=== PATIENT | female | born 1955 | race Caucasian/White ===

== ENCOUNTER 2023-01-23 09:12 | Day surgery (SDC) | payer MEDICARE, BC ==
[2023-01-16 16:26] LABS: BASOPHILS % (AUTO) 0.7 % (0-1); EOSINOPHILS # (AUTO) 0.2 X10'3 (0-0.9); LYMPHOCYTES # (AUTO) 1.8 X10'3 (1.1-4.8); LYMPHOCYTES % (AUTO) 32.6 % (21-51); MEAN CORPUSCULAR HEMOGLOBIN 30.3 PG (27.0-31.0); MEAN CORPUSCULAR HGB CONC 33.3 g/dL (33.0-36.5); MEAN CORPUSCULAR VOLUME 91.1 FL (78-98); MEAN PLATELET VOLUME 8.4 FL (7.4-10.4); MONOCYTES # (AUTO) 0.4 X10'3 (0-0.9); MONOCYTES % (AUTO) 7.4 % (2-12); NEUTROPHILS # (AUTO) 3.1 X10'3 (1.8-7.7); NEUTROPHILS % (AUTO) 56.3 % (42-75); PRE OP HEMATOCRIT 39.1 % (35.0-45.0); PRE OP PLATELET COUNT 248 X10'3 (140-440); RED BLOOD COUNT 4.29 X10'6 (4.20-5.60); RED CELL DISTRIBUTION WIDTH 13.1 % (11.5-14.5)
[2023-01-16 16:39] LABS: ALBUMIN 4.1 G/DL (3.4-5.0); ALBUMIN/GLOBULIN RATIO 1.2 (1.1-1.5); ALKALINE PHOSPHATASE 97 IU/L (46-116); BLOOD UREA NITROGEN 12 MG/DL (7-18); BUN/CREATININE RATIO 17.1 (6.6-38.0); CALCIUM 9.9 MG/DL (8.5-10.1); CHLORIDE 105 MMOL/L (99-107); PRE OP ALT 21 U/L (30-65); PRE OP ANION GAP 4 (8-16); PRE OP AST 18 U/L (10-37); PRE OP BILIRUB, TOTAL 0.4 MG/DL (0.0-1.0); PRE OP GLUCOSE 94 MG/DL (70-104); PRE OP SODIUM 143 MMOL/L (135-145); TOTAL CARBON DIOXIDE 34.2 MMOL/L (24-32); TOTAL PROTEIN 7.6 G/DL (6.4-8.2); eGFR 83 ML/MIN
[2023-01-16 16:40] LABS: PRE OP POTASSIUM 3.2 MMOL/L (3.4-5.1)
[2023-01-23] VITALS (7 sets, daily range): BP systolic 116–154; BP diastolic 61–77
[~2023-01-23] VITALS: Ht 157.5 cm; Wt 61.8 kg
[~2023-01-23 09:12] MED LIST: BUPIVAcaine/PF 2.5 mg/ml (0.25%) 30ml vial ONE; CHLO25TA10 PO; CYAN25003 SL; DOXYLAMINE PO; LIDOcaine 0.5% (5mg/ml) 50ml vial ONE; MELA5TAB12 PO; POTA-207 PO; ROSU10TA28 PO; VITAMIN D 2000 UNIT PO; cefazolin 2gm/D5W 100mL 100 ML IV ONE; famotidine 20mg tablet PO ONE; ringers solution, lacted 1,000 ML IV SCH
[2023-01-23] MEDS ORDERED: acetaminophen 1,000mg/100ml IV 100 ML IV PRN (11:15)
[2023-01-23] MEDS ORDERED: meperidine/PF 25mg/ml syringe IV PRN ×3 (11:15)
[2023-01-23] MEDS ORDERED: ondansetron/PF 4mg/2ml inj IV PRN (11:15)
[2023-01-23] MEDS ORDERED: morphine 2 MG/ML inj. syringe IV PRN (11:15)
[2023-01-23] MEDS ORDERED: hydrALAZINE 20mg/ml inj. IV PRN (11:15)
[2023-01-23] MEDS ORDERED: ringers solution, lacted 1,000 ML IV SCH (11:15)
[2023-01-23] MEDS ORDERED: morphine 4 MG/ML inj SYRINge IV PRN (11:15)
[2023-01-23] MEDS ORDERED: proCHLORperazine 10 MG/2 ml inj IV PRN (11:15)
[2023-01-23] MEDS ORDERED: labetalol 20mg/4ml (5mg/ml) syringe IV PRN (11:15)
[2023-01-23] MEDS ORDERED: midazolam 1 mg/ML 2ml injection ONE (12:24)
[2023-01-23] MEDS ORDERED: fentaNYL/PF 50MCG/1 ML 2ML syringe ONE (12:25)
[2023-01-23] MEDS ORDERED: BUPIVAcaine/PF 5 mg/ml 10ml IJ ONE (12:48)
--- NOTE | 2023-01-23 12:51 | NUR ---
Received from OR via , accompanied by Anesthesiologist TEA AND OR NURSE and report given by Anesthesiolgist. PT IS AWAKE AND ALERT; C/O NAUSEA. DENIES PAIN OR DISCOMFORT. RT WRIST DRESSING; CDI. VSS Addendum: 01/23/23 at 1311 by Amara Huang RN Amended: Links added.
--- NOTE | 2023-01-23 13:41 | NUR ---
ALL DISCHARGE CRITERIA HAS BEEN MET. VSS, PAIN AT A TOLERABLE LEVEL, VOIDING AND ABLE TO SAFELY AMBULATE AND TRANSFER SELF. IV TAKEN OUT WITHOUT ANY COMPLICATIONS. ALL DISCHARGE INSTRUCTIONS COVERED WITH PATIENT AND ALL QUESTIONS ANSWERED. PATIENT TAKEN OUT VIA WHEELCHAIR TO PERSONAL VEHICLE WHERE FAMILY/FRIEND DROVE PATIENT HOME. Addendum: 01/23/23 at 1350 by Amara Huang RN Amended: Links added.
== END 2023-01-23 13:41 | disposition home or self-care (01) ==
LOC: PAS 09:12
PROVIDERS: ATTEND Orthopaedic Surgery Hand Surgery
DX: G56.01 Carpal tunnel syndrome, right upper limb (principal); M65.311 Trigger thumb, right thumb; I10 Essential (primary) hypertension; J45.909 Unspecified asthma, uncomplicated; G62.9 Polyneuropathy, unspecified; Z88.1 Allergy status to other antibiotic agents; Z88.2 Allergy status to sulfonamides; Z72.89 Other problems related to lifestyle; Z79.899 Other long term (current) drug therapy; Z98.51 Tubal ligation status; Z98.890 Other specified postprocedural states
CPT/HCPCS: 26055; 36415; 64721; 80053; 82948; 85025; 93005; J0690; J2250; J2405; J3010; J3490; J7030; J7120; Z7506; Z7512; A4215